=== PATIENT | male | born 1985 | race Caucasian/White ===

== ENCOUNTER → 2024-11-21 | Outpatient (CLI) | payer BC ==
--- NOTE | 2024-11-21 13:51 | FL ---
Exam Date: 11/21/2024 1:07 PM. Modified barium swallow for dysphagia. Consistencies administered: Various consistency of barium. Fluoro time: 59 sec No images were sent to PACS. Please see speech pathology report. DAP: 87.74 mGym2 Gycm2 [facility], , 11/21/2024 1:48 PM
== END | disposition home or self-care (01) ==
LOC: RADFLMAIN 11:59
PROVIDERS: ATTEND Otolaryngology
DX: R93.3 Abnormal findings on diagnostic imaging of other parts of digestive tract (principal); R13.19 Other dysphagia
CPT/HCPCS: 74230